=== PATIENT | female | born 1970 | race Caucasian/White ===

== ENCOUNTER 2016-08-21 21:34 | Inpatient (IN) | payer OTHER ==
[~2016-08-21] VITALS: Ht 172.7 cm; Wt 73.0 kg
[~2016-08-21 21:34] MED LIST: ATIVAN2 MG PO; CYANOCOBALAM1000 MCG PO; DECADRON2 MG PO; DESYREL100 MG PO; DOXEPIN HCL10 MG PO; EFFEXOR XR75 MG PO; ELAVIL25 MG PO; ELAVIL50 MG PO; FIORICET,ESG1 TABLET PO; GABAPENTIN300 MG PO; KLONOPIN1 MG; MECLIZINE HCL12.5 M1; METHADONE10 MG PO; MOTRIN600 MG PO; MOTRIN800 MG PO; NEURONTIN300 MG PO; NORCO 7.5/321 TABLET PO; SKELAXIN800 MG PO; TYLENOL PM1 CAPLET PO; VICODIN,LORT1 TABLET PO; ZOLOFT100 MG PO; ZOLOFT50 MG PO
[2016-08-21 22:19] LABS: ADD MIUA? YES; BILIRUBIN NEGATIVE; BLOOD NEGATIVE; COLOR YELLOW ((YELLOW)); GLUCOSE (STRIP) NEGATIVE; KETONES NEGATIVE; LEUKOCYTES LARGE; NITRITE NEGATIVE; PROTEIN (STRIP) NEGATIVE; SPECIFIC GRAVITY 1.015 (1.000-1.030)
[2016-08-21 22:28] LABS: BACTERIA RARE /HPF; EPITHELIAL CELLS 1+ /HPF; MUCUS TRACE /LPF; RED BLOOD CELLS 0-5 /HPF (0-5); UCUL ADDED? NO; WHITE BLOOD CELLS 0-5 /HPF (0-5)
[2016-08-21 22:41] LABS: HEMATOCRIT 36.1 % (36.0-46.0); MCH 29.2 PG (29.0-34.0); MCV 88.7 FL (83-99); PLATELET COUNT 192 K/uL (156-360); RBC DIS.WIDTH-CV 12.4 % (11.8-14.6); RBC DIS.WIDTH-SD 40.4 % (39-53); RED BLOOD COUNT 4.07 M/uL (3.80-5.20); WHITE BLOOD COUNT 10.5 K/uL (4.1-10.2)
[2016-08-21 22:53] LABS: CHLORIDE 104 mEq/L (99-109); POTASSIUM 4.1 mEq/L (3.7-5.4); SODIUM 138 mEq/L (136-147)
[2016-08-21 22:55] LABS: GLUCOSE 91 mg/dL (70-99)
[2016-08-21 22:57] LABS: ANION GAP 9 MEQ/L (2-14); TOTAL BILIRUBIN 0.8 mg/dL (0.0-1.0)
[2016-08-21 22:59] LABS: ALKALINE PHOSPHATASE 53 IU/L (3-129); GFR ESTIMATE (CALCULATED) > 59 mL/min/
[2016-08-21 23:00] LABS: UREA NITROGEN (BUN) 9 mg/dL (9-23)
[2016-08-21 23:02] LABS: TROP-I INTERPRETATION NEGATIVE; TROPONIN-I < 0.01 ng/mL (0.0-0.30)
[2016-08-21 23:08] LABS: QUANTITATIVE HCG < 4.0 MIU/ML
[2016-08-22 04:09] VITALS: BP 121/57
[2016-08-22 07:19] VITALS: BP 109/60
[2016-08-22 09:15] LABS: HEMATOCRIT 33.4 % (36.0-46.0); MCH 30.1 PG (29.0-34.0); MCHC 32.9 G/DL (30.0-36.0); MCV 91.3 FL (83-99); PLATELET COUNT 152 K/uL (156-360); RBC DIS.WIDTH-CV 12.8 % (11.8-14.6); RBC DIS.WIDTH-SD 42.3 % (39-53); RED BLOOD COUNT 3.66 M/uL (3.80-5.20)
[2016-08-22 09:19] LABS: WHITE BLOOD COUNT 5.3 K/uL (4.1-10.2)
[2016-08-22 09:42] LABS: ALKALINE PHOSPHATASE 55 IU/L (3-129); DIRECT BILIRUBIN 0.4 mg/dL (0.0-0.3); TOTAL BILIRUBIN 1.2 MG/DL (0.0-1.0)
[2016-08-22 09:56] LABS: LIPASE 35 U/L (1.0-51.0)
[2016-08-22 11:53] VITALS: BP 108/50
[2016-08-22 15:18] VITALS: BP 109/53
[2016-08-22 19:30] VITALS: BP 117/50; BP 17/50
[2016-08-22] MEDS ORDERED: ASCORBIC ACID500 M1 PO (19:59)
[2016-08-22 23:38] VITALS: BP 115/54
[2016-08-23 03:45] VITALS: BP 106/57
[2016-08-23 07:20] VITALS: BP 114/55
[2016-08-23 07:23] LABS: EOSINOPHIL (%) 4.6 % (0-5); EOSINOPHIL COUNT 0.2 K/uL (0-0.3); HEMATOCRIT 34.8 % (36.0-46.0); INSTRUMENT ABS NEUTROPHIL CT 1.9 K/uL; LYMPHOCYTE COUNT 1.8 K/uL (1.0-2.8); MCH 29.8 PG (29.0-34.0); MCHC 32.5 G/DL (30.0-36.0); MCV 91.8 FL (83-99); MEAN PLAT.VOLUME 11.8 uM^3 (9.5-12.4); MONOCYTE (%) 8.9 % (3-12); MONOCYTE COUNT 0.4 K/uL (0-0.8); NEUTROPHIL (%) 44.4 % (45-76); NEUTROPHIL COUNT 1.9 K/uL (1.8-6.4); PLATELET COUNT 143 K/uL (156-360); RBC DIS.WIDTH-CV 12.8 % (11.8-14.6); RBC DIS.WIDTH-SD 43.2 % (39-53); RED BLOOD COUNT 3.79 M/uL (3.80-5.20); WHITE BLOOD COUNT 4.4 K/uL (4.1-10.2)
[2016-08-23 07:32] LABS: INTER. NORMALIZED RATIO 1.1; PROTHROMBIN TIME 11.2 (9.2-11.2)
[2016-08-23 07:47] LABS: ALKALINE PHOSPHATASE 60 IU/L (3-129); ANION GAP 6 MEQ/L (2-14); CHLORIDE 108 MEQ/L (99-109); DIRECT BILIRUBIN 0.2 mg/dL (0.0-0.3); GFR ESTIMATE (CALCULATED) > 59 mL/min/; GLUCOSE 87 mg/dL (70-99); POTASSIUM 4.2 MEQ/L (3.7-5.4); SAMPLE HEMOLYSIS CHECK 0; SAMPLE ICTERIC CHECK 0; SAMPLE LIPEMIA CHECK 0; SODIUM 142 MEQ/L (136-147); UREA NITROGEN (BUN) 8 mg/dL (9-23)
[2016-08-23 07:48] LABS: TOTAL BILIRUBIN 0.8 MG/DL (0.0-1.0)
[2016-08-23 12:06] VITALS: BP 96/45
[2016-08-23 15:46] VITALS: BP 110/54
[2016-08-23 20:02] VITALS: BP 103/49
[2016-08-24] VITALS (9 sets, daily range): BP systolic 89–168; BP diastolic 49–62
[2016-08-24 06:21] LABS: EOSINOPHIL (%) 4.6 % (0-5); EOSINOPHIL COUNT 0.2 K/uL (0-0.3); HEMATOCRIT 33.4 % (36.0-46.0); INSTRUMENT ABS NEUTROPHIL CT 2.5 K/uL; LYMPHOCYTE COUNT 2.1 K/uL (1.0-2.8); MCH 29.8 PG (29.0-34.0); MCHC 32.3 G/DL (30.0-36.0); MCV 92.3 FL (83-99); MONOCYTE (%) 8.4 % (3-12); MONOCYTE COUNT 0.4 K/uL (0-0.8); NEUTROPHIL (%) 47.1 % (45-76); NEUTROPHIL COUNT 2.5 K/uL (1.8-6.4); PLATELET COUNT 153 K/uL (156-360); RBC DIS.WIDTH-CV 12.6 % (11.8-14.6); RBC DIS.WIDTH-SD 42.3 % (39-53); RED BLOOD COUNT 3.62 M/uL (3.80-5.20); WHITE BLOOD COUNT 5.2 K/uL (4.1-10.2)
[2016-08-24 06:47] LABS: ALKALINE PHOSPHATASE 56 IU/L (3-129); ANION GAP 7 MEQ/L (2-14); CHLORIDE 105 MEQ/L (99-109); GFR ESTIMATE (CALCULATED) > 59 mL/min/; GLUCOSE 101 mg/dL (70-99); MAGNESIUM 1.6 mg/dl (1.3-2.7); POTASSIUM 3.7 MEQ/L (3.7-5.4); SAMPLE HEMOLYSIS CHECK 0; SAMPLE ICTERIC CHECK 0; SAMPLE LIPEMIA CHECK 0; SODIUM 140 MEQ/L (136-147); UREA NITROGEN (BUN) 6 mg/dL (9-23)
[2016-08-24 06:49] LABS: TOTAL BILIRUBIN 0.4 MG/DL (0.0-1.0)
[2016-08-24 10:34] LABS: D-DIMER ELISA 0.29 mg/L FEU (< 0.57)
[2016-08-24 15:22] LABS: TROP-I INTERPRETATION NEGATIVE; TROPONIN-I < 0.01 ng/mL (0.0-0.30)
[2016-08-25 03:29] VITALS: BP 99/54
[2016-08-25 06:49] LABS: EOSINOPHIL (%) 2.3 % (0-5); EOSINOPHIL COUNT 0.2 K/uL (0-0.3); HEMATOCRIT 32.2 % (36.0-46.0); IMMATURE GRANULOCYTE (%) 0.2 % (0.0-0.7); INSTRUMENT ABS NEUTROPHIL CT 7.7 K/uL; LYMPHOCYTE COUNT 1.2 K/uL (1.0-2.8); MCH 29.9 PG (29.0-34.0); MCV 93.3 FL (83-99); MEAN PLAT.VOLUME 11.7 uM^3 (9.5-12.4); MONOCYTE (%) 6.5 % (3-12); MONOCYTE COUNT 0.6 K/uL (0-0.8); NEUTROPHIL (%) 78.9 % (45-76); NEUTROPHIL COUNT 7.7 K/uL (1.8-6.4); PLATELET COUNT 140 K/uL (156-360); RBC DIS.WIDTH-CV 12.7 % (11.8-14.6); RBC DIS.WIDTH-SD 43.3 % (39-53); RED BLOOD COUNT 3.45 M/uL (3.80-5.20)
[2016-08-25 06:51] LABS: WHITE BLOOD COUNT 9.7 K/uL (4.1-10.2)
[2016-08-25 07:10] VITALS: BP 100/50
[2016-08-25 07:37] LABS: ALKALINE PHOSPHATASE 54 IU/L (3-129); ANION GAP 7 MEQ/L (2-14); CHLORIDE 103 MEQ/L (99-109); GFR ESTIMATE (CALCULATED) > 59 mL/min/; GLUCOSE 109 mg/dL (70-99); MAGNESIUM 1.5 mg/dl (1.3-2.7); POTASSIUM 3.7 MEQ/L (3.7-5.4); SAMPLE HEMOLYSIS CHECK 0; SAMPLE ICTERIC CHECK 0; SAMPLE LIPEMIA CHECK 0; SODIUM 139 MEQ/L (136-147); UREA NITROGEN (BUN) 5 mg/dL (9-23)
[2016-08-25 07:41] LABS: TOTAL BILIRUBIN 0.5 MG/DL (0.0-1.0)
[2016-08-25 11:01] VITALS: BP 108/60
[2016-08-25] MEDS ORDERED: BENTYL20 MG PO (11:32)
== END 2016-08-25 14:04 | disposition home or self-care (01) | DRG 392 ==
LOC: EME 21:34 → 2EAST 08-22 03:02 → EDOF 08-22 03:02 → 2EAST 08-22 04:00
PROVIDERS: Emergency Medicine; Hospitalist; Internal Medicine; Internal Medicine Gastroenterology
DX: R10.11 Right upper quadrant pain (principal); K80.80 Other cholelithiasis without obstruction; K83.8 Other specified diseases of biliary tract; M79.7 Fibromyalgia; F32.9 Major depressive disorder, single episode, unspecified; Z79.891 Long term (current) use of opiate analgesic
CPT/HCPCS: 71020; 74177; 74183; 76705; 80048; 80053; 80076; 81003; 83605; 83690; 83735; 84484; 84702; 85025; 85027; 85379; 85610; 87086; 93005; 94799; 99281; 99285; G0378; J0696; J1650; J1885; J2270; J2405; J3010; J7030; J7050; S0028

== ENCOUNTER 2016-12-25 08:06 | Day surgery (SDC) | payer OTHER ==
[~2016-12-25] VITALS: Ht 172.7 cm; Wt 65.0 kg
[~2016-12-25 08:06] MED LIST changes: +ASCORBIC ACID500 M1 PO; +BENTYL20 MG PO; +COZAAR25 MG PO; +DESYREL 150 MG150 MG PO; +NEURONTIN600 MG PO; +PLAQUENIL200 MG PO; +PREDNISONE10 MG PO; +REMERON15 M2 PO; +SINEQUAN10 MG PO; +VYVANSE50 MG PO
[2016-12-25 08:48] VITALS: BP 105/58
[2016-12-25 09:31] LABS: ANION GAP 9 MEQ/L (2-14); CHLORIDE 102 MEQ/L (99-109); GFR ESTIMATE (CALCULATED) > 59 mL/min/; GLUCOSE 99 mg/dL (70-99); SAMPLE HEMOLYSIS CHECK 0; SAMPLE ICTERIC CHECK 0; SAMPLE LIPEMIA CHECK 0; SODIUM 139 MEQ/L (136-147); UREA NITROGEN (BUN) 19 mg/dL (9-23)
[2016-12-25 11:12] VITALS: BP 111/53
[2016-12-25 12:25] VITALS: BP 90/58
[2016-12-25 13:21] VITALS: BP 97/50
== END 2016-12-25 13:25 | disposition home or self-care (01) ==
LOC: SDC 08:06
PROVIDERS: Surgery
PROC: 0KBR0ZX Excision of Left Upper Leg Muscle, Open Approach, Diagnostic (ICD-10-PCS; principal; 2016-12-25)
DX: M62.81 Muscle weakness (generalized) (principal); M32.9 Systemic lupus erythematosus, unspecified; G89.4 Chronic pain syndrome; Z79.891 Long term (current) use of opiate analgesic; F41.1 Generalized anxiety disorder; G62.9 Polyneuropathy, unspecified
CPT/HCPCS: 80048; J0690; J1100; J2250; J2405; J3010; S0020